=== PATIENT | male | born 1965 | race Caucasian/White ===

== ENCOUNTER 2022-05-30 08:17 | Outpatient (CLI) | payer OTHER, SELFPAY ==
[2022-05-30 19:56] LABS: Alanine Aminotransferase 40 U/L (6-50); Albumin Level 4.7 g/dL (3.5-5.1); Alkaline Phosphatase 81 U/L (38-126); Anion Gap 14 mmol/L (8-16); Aspartate Amino Transferase 36 U/L (17-59); Bilirubin,Total 0.6 mg/dL (0.2-1.3); Blood Urea Nitrogen 12 mg/dL (9-20); Calcium 9.1 mg/dL (8.4-10.2); Carbon Dioxide 25 mmol/L (22-30); Chloride 103 mmol/L (98-107); Cholesterol 175 mg/dL (0-200); Estimated Glomerular Filt Rate > 60; Glucose 90 mg/dL (65-110); HDL Direct 40 mg/dL; Sodium 142 mmol/L (137-145); Triglycerides 62 mg/dL (<150)
[2022-05-30 20:08] LABS: LDL Cholesterol Direct 114 mg/dL
[2022-05-30 20:25] LABS: Prostate Specific Antigen 0.5 ng/mL (< OR = 4.0)
== END 2022-05-30 08:18 | disposition home or self-care (01) ==
LOC: ANHGOSHLAB 08:18
PROVIDERS: PCP Family Medicine; Visit Provider Family Medicine
DX: I10 Essential (primary) hypertension (principal); E78.2 Mixed hyperlipidemia; Z12.5 Encounter for screening for malignant neoplasm of prostate
CPT/HCPCS: 36415; 80053; 80061; 84153; G0103

== ENCOUNTER → 2023-03-02 09:55 | Outpatient (REF) | payer OTHER, SELFPAY | LOC: ANHLAB 09:55 | PROVIDERS: PCP Family Medicine; Visit Provider Plastic Surgery | DX: L72.3 Sebaceous cyst (principal) | CPT/HCPCS: 88304; 88311 ==

== ENCOUNTER 2024-02-15 11:06 | Outpatient (CLI) | payer OTHER, SELFPAY ==
[2024-02-15 19:52] LABS: Prostate Specific Antigen 0.5 ng/mL (< OR = 4.0)
== END 2024-02-15 11:07 | disposition home or self-care (01) ==
LOC: ANHGOSHLAB 11:09
PROVIDERS: PCP Family Medicine; Visit Provider Family Medicine
DX: Z12.5 Encounter for screening for malignant neoplasm of prostate (principal)
CPT/HCPCS: 36415; 84153; G0103

== ENCOUNTER 2024-03-29 09:03 | Outpatient (CLI) | payer OTHER, SELFPAY ==
[2024-04-13 16:45] VITALS: BMI 27.0
--- NOTE | 2024-04-13 16:45 | WPDHOMESLEEP ---
Sleep Study - Home Unattended Date of Study: 03/29/24 Ordering Provider: Phil Lockwood DO Interpreting Provider: Evy Puckett DO Home Sleep Study Type: Watch PAT Height: 1.75 m Weight: 83.007 kg Body Mass Index: 27.0 Neck Circumference (inches): 16 Sebastian: 0 Reason for Sleep Study Hx of sleep apnea. Not currently on therapy Sleep History The patient is a 58-year-old male with hypertension and previously diagnosed sleep apnea that had a sleep study ordered due to difficulty maintaining sleep. The patient denies snoring loudly as well as stopping breathing during the night. He denies choking /gasping while sleeping. He denies having trouble breathing on his back. He denies waking up with headaches that he did not go to bed with. He denies waking up in the morning with a dry or sore throat. He denies nocturnal heartburn. He wakes up twice throughout the night to urinate. The patient denies having difficulty falling asleep. He denies having difficulty returning to sleep. He does wake up early unintentionally. He does not use any hypnotics were sent to his. He denies being anxious about sleep. He does have daytime hypersomnia and feels unrefreshed in the morning. He denies having the urge to fall asleep during the day. He denies having issues being drowsy while driving. He does admit to clenching and grinding his teeth. He does admit to kicking her drinking his legs excessively. He does have a restless feeling in his legs and he does have the urge to move them. His leg sensations are not worse with rest and they do not improve with activities. The leg sensations only occur in the evening or at night time but they do not cause a sleep disturbance. The patient goes to bed at 9:30 p.m. on work days and at 10:30 p.m. on non-work days. It takes him 15 minutes to fall asleep. He gets 7.5 hours of sleep per night. He does not take any planned naps. He denies smoking cigarettes. He consumes 2 glasses of an alcoholic beverage 3-4 nights per week. He consumes 3-4 caffeinated beverages per day. He exercises almost daily. [facility] Past Medical History Medical History Bilateral primary osteoarthritis of knee Effusion, left knee History of MRSA infection Knee joint effusion Left knee DJD Right knee DJD Family History Family History Sibling Family history of alcoholism Father Patient's father is , Onset Age: 53 Social History Social History Smoking status: Former smoker Second hand tobacco smoke exposure: No Smoking end date: 08/10/97 Alcohol intake: current Substance use: never Substance use type: does not use Lack of Transportation: No Lack of Food: Never True Current Housing: I Have Housing Concerned About Future Housing: No Difficulty Paying Gas/Electric Bills: No Difficulty Paying for Meds: No Currently Unemployed: YES Education: Bachelor's Degree Difficulty w/ Childcare or Family Care: No Living arrangements: with family Occupation/Education: occupation Gender identity (if verbalized by the patient): Male Sexual Orientation (if Verbalized by the Patient): Straight or Heterosexual Spiritual care concerns: No Medications Home Medications Medication Instructions Recorded Confirmed Type rosuvastatin 10 mg tablet 10 mg PO DAILY #90 tabs 01/25/24 02/22/24 Rx amlodipine 10 mg tablet 10 mg PO DAILY #90 tabs 03/21/24 Rx Sleep Procedure The sleep study was completed using [employer] a technically adequate device with seven channels: peripheral arterial tone, actigraphy, body position, snore, respiratory movement, pulse oximetry, sleep staging, and heart rate. Prior to using the device, the patient received verbal and written instructions for its application and was provided w
== END 2024-04-01 14:02 | disposition home or self-care (01) ==
LOC: ANHCSM 09:03
PROVIDERS: PCP Family Medicine; Visit Provider Family Medicine
DX: G47.33 Obstructive sleep apnea (adult) (pediatric) (principal); R06.83 Snoring
CPT/HCPCS: 95800